=== PATIENT | female | born 1995 | race Caucasian/White ===

== ENCOUNTER 2018-03-28 19:38 | Emergency (ER) | payer OTHER ==
[~2018-03-28] VITALS: Ht 157.5 cm; Wt 55.3 kg
[~2018-03-28 19:38] MED LIST: BACTRIM DS TAB1 EACH PO; NOHOMEMEDICATIONS; PAXIL10 MG PO; PYRIDIUM200 MG PO; ZANTAC 150MG T150 M1 PO; ZOFRAN ODT4 MG PO; birth control
[2018-03-28] MEDS ORDERED: AMITRIPTYLINE H25 M2 (19:57)
[2018-03-28 20:39] LABS: ABSOLUTE BASOPHILS 0.1 thou/uL (0.0-0.2); ABSOLUTE EOSINOPHILS 0.1 thou/uL (0.0-0.7); ABSOLUTE LYMPHOCYTES 1.9 thou/uL (0.8-5.3); ABSOLUTE MONOCYTES 0.4 thou/uL (0.0-1.2); ABSOLUTE NEUTROPHILS 4.3 thou/uL (1.6-8.1); BASOPHILS 1.1 %; EOSINOPHILS 1.6 %; HEMATOCRIT 38.1 % (37.0-47.0); HEMOGLOBIN 12.9 gm/dL (12.0-15.0); LYMPHOCYTES 28.2 %; MCH 27.2 pg (26.0-34.0); MCHC 33.9 g/dL (28.0-37.0); MCV 80.3 fL (80.0-100.0); MONOCYTES 6.2 %; MPV 7.4 fl. (7.2-11.1); NUCLEATED RBCS 0 /100WBC; PLATELET COUNT* 273 thou/uL (150-400); POLYS 62.9 %; RBC 4.75 mil/uL (4.20-5.00); RDW-CV 12.8 % (10.5-14.5); WBC 6.8 thou/uL (4.0-11.0)
[2018-03-28 20:57] LABS: CREATININE 0.7 mg/dL (0.6-1.3); POTASSIUM 3.5 mmol/L (3.5-5.1)
[2018-03-28 21:02] LABS: ALBUMIN 4.1 g/dL (3.4-5.0); TOTAL BILIRUBIN 0.6 mg/dL (<0.1-1.0); TOTAL PROTEIN 7.5 g/dL (6.4-8.2)
[2018-03-28 21:29] VITALS: BP 116/62
== END 2018-03-28 21:29 | disposition home or self-care (01) ==
LOC: M.ERS 19:38
PROVIDERS: Physician Assistant
DX: M79.652 Pain in left thigh (principal); F41.9 Anxiety disorder, unspecified; Z77.22 Contact with and (suspected) exposure to environmental tobacco smoke (acute) (chronic)

== ENCOUNTER 2018-07-27 21:35 | Emergency (ER) | payer OTHER ==
[~2018-07-27] VITALS: Ht 157.5 cm; Wt 59.0 kg
[~2018-07-27 21:35] MED LIST changes: +AMITRIPTYLINE H25 M2
[2018-07-27] MEDS ORDERED: CELEXA20 MG PO (21:47)
[2018-07-27] MEDS ORDERED: VISTARIL 25 MG25 M1 PO (22:13)
[2018-07-27 22:26] VITALS: BP 132/71
== END 2018-07-27 22:26 | disposition home or self-care (01) ==
LOC: M.ERS 21:35
DX: F41.9 Anxiety disorder, unspecified (principal); Z77.22 Contact with and (suspected) exposure to environmental tobacco smoke (acute) (chronic)

== ENCOUNTER 2019-10-21 23:17 | Observation (INO) | payer OTHER ==
[~2019-10-21] VITALS: Ht 157.5 cm; Wt 68.0 kg
[~2019-10-21 23:17] MED LIST changes: +CELEXA20 MG PO; +VISTARIL 25 MG25 M1 PO
[2019-10-21] MEDS ORDERED: [UNRECOGNIZED DRUG - OTHER] (23:28)
[2019-10-21 23:29] VITALS: BP 130/84
[2019-10-21 23:52] LABS: URINE BILIRUBIN NEGATIVE (Negative); URINE BLOOD TRACE (Negative); URINE CLARITY CLEAR; URINE COLOR YELLOW; URINE GLUCOSE-RANDOM NEGATIVE (Negative); URINE KETONES NEGATIVE (Negative); URINE LEUKOCYTES-REFLEX NEGATIVE (Negative); URINE NITRITE-REFLEX NEGATIVE (Negative); URINE PROTEIN NEGATIVE (Negative); URINE UROBILINOGEN 0.2 E.U./dl (0.2-1.0)
[2019-10-22 00:06] LABS: ABSOLUTE LYMPHOCYTES 1.5 thou/uL (0.8-5.3); ABSOLUTE MONOCYTES 0.7 thou/uL (0.0-1.2); ABSOLUTE NEUTROPHILS 12.1 thou/uL (1.6-8.1); BASOPHILS 0.1 %; EOSINOPHILS 0.3 %; HEMATOCRIT 38.8 % (37.0-47.0); HEMOGLOBIN 13.4 gm/dL (12.0-15.0); LYMPHOCYTES 10.6 %; MCHC 34.5 g/dL (28.0-37.0); MCV 81.2 fL (80.0-100.0); MONOCYTES 4.9 %; MPV 7.6 fl. (7.2-11.1); NUCLEATED RBCS 0 /100WBC; PLATELET COUNT* 245 thou/uL (150-400); POLYS 84.1 %; RBC 4.79 mil/uL (4.20-5.00); RDW-CV 13.1 % (10.5-14.5); WBC 14.4 thou/uL (4.0-11.0)
[2019-10-22 00:19] LABS: CALCIUM 8.6 mg/dL (8.5-10.1); CREATININE 0.9 mg/dL (0.6-1.3); POTASSIUM 3.5 mmol/L (3.5-5.1)
[2019-10-22 00:23] LABS: ALBUMIN 3.8 g/dL (3.4-5.0); TOTAL BILIRUBIN 0.9 mg/dL (<0.1-1.0); TOTAL PROTEIN 7.2 g/dL (6.4-8.2)
[2019-10-22 05:15] VITALS: BP 109/62
--- NOTE | 2019-10-22 08:03 | OP ---
[address] [address] OPERATIVE REPORT Name: GI GALLO Room: [address] M.RAmparo#: [id number] Admission: 10/22/19 Attend Phys: Rosemary Fernandes DO Discharge: Date of : [birth year] Report #: [id number] THIS REPORT FOR: //name// cc: Summer JOYCE A DO THIS REPORT FOR: //name// CC: Summer Vazquez DO DICTATED BY: Nieves Baker DO DATE OF SERVICE: 10/22/2019 PREOPERATIVE DIAGNOSIS: Acute appendicitis with localized peritonitis and leukocytosis. POSTOPERATIVE DIAGNOSIS: Acute appendicitis with localized peritonitis and leukocytosis. PRIMARY SURGEON: Rosemary Fernandes DO. SEAFOOD FISHERMAN: Nieves Baker DO, PGY3. PROCEDURE PERFORMED: Laparoscopic appendectomy. ANESTHESIA: General and local. EBL: 5. FINDINGS: Inflammation of the appendix. Uterus was mildly enlarged and also appeared inflamed with some surrounding clear yellow fluid. COMPLICATIONS: None. INDICATION FOR PROCEDURE: The patient is a pleasant 24-year-old female that presented to the Emergency Department with complaint of worsening lower abdominal pain as well as nausea and vomiting. Workup in the Emergency Department revealed a leukocytosis and also included a CT scan, which was positive for mild acute appendicitis. It was recommended that she undergo laparoscopic appendectomy. The procedure, risks, benefits, and possible complications to include bleeding, infection, injury to surrounding structures, hernia at an incision site, need for open procedure, need for additional surgery, risk of anesthesia, and other risks of surgery were discussed with the patient in great detail. She voiced complete understanding and wished to [address] [address] OPERATIVE REPORT Name: EUNALFREDKRISTIEGI E Room: [address] Homar Martell#: [id number] Admission: 10/22/19 Attend Phys: oRsemary Fernandes DO Discharge: Date of : [birth year] Report #: [id number] proceed with surgery. DESCRIPTION OF THE PROCEDURE: Informed consent was obtained, the patient was taken to the operating room and placed supine on the operating room table. General endotracheal anesthesia was induced without difficulty. SCDs were placed on bilateral lower extremities. Preoperative antibiotics were given. Abdomen was prepped and draped in the standard sterile fashion. A timeout was performed to ensure correct patient and procedure. We began by making a small infraumbilical incision using a #11 blade scalpel. Incision was carried down through the subcutaneous tissue using electrocautery. S retractors were then used to dissect further down to the level of fascia. Fascia was grasped between 2 Kochers and elevated. Fascia was incised using electrocautery. Peritoneum was entered bluntly using a hemostat. A finger sweep was performed to ensure there were no per- incisional adhesions, 0 Vicryl stay sutures were placed on either side of our fascial opening 12 mm Yuriy trocar was inserted through our fascial opening. Abdomen was insufflated without difficulty. Laparoscopic camera was inserted and a sweep of the anterior abdominal contents was performed. The appendix was not readily visualized on our initial sweep. The pelvic organs including the uterus appeared slightly enlarged and mildly inflamed with some surrounding clear yellow fluid. The patient was then placed in the Trendelenburg position with the left side down. A suprapubic and a left lower quadrant 5 mm trocar were inserted under direct visualization. There was a large amount of omentum covering the lower abdominal organs. This was retracted superiorly and the appendix was identified in a retrocecal position. Appendix was grasped and elevated, it did appear to be acutely inflamed. A [place] dissector was used to dissect a window through the mesoappendix at the base of the appendix. Once this was done, 45 mm purple load on the Endo-VICENTA stapler was used to come across the base of our appendix. An additional 45 mm purple load on the Endo-VICENTA stapler was used to come across our mesoappendix. Staple lines were inspected. The appendix was then placed within an EndoCatch bag. The staple lines were reinspected. There did appear to be a small amount of bleeding coming from our staple line along the mesoappendix. This was controlled using electrocautery. Once hemostasis was achieved, the insufflation tubing was removed and the abdomen was allowed to desufflate slightly as we monitored our staple lines. There did not appear to be any further bleeding. Abdomen was reinsufflated. An additional sweep of the abdominal contents was performed. No additional abnormalities were identified. The suprapubic and left lower quadrant 5 mm trocars were removed under direct visualization. Abdomen was desufflated without difficulty. Camera was removed. The 12 mm Yuriy trocar was removed as well as the appendix within the EndoCatch bag. The fascia at the infraumbilical incision was grasped between 2 Kochers. Previously placed stay sutures were removed. The fascia was then closed using 0 Vicryl suture in a xvzxui-ow-soxpt fashion. Skin was closed using 4-0 Monocryl suture in a running subcuticular fashion. The 5 mm trocar sites were closed using 4-0 Monocryl suture in a simple interrupted and inverted fashion. Approximately 30 mL of 0.5% Marcaine were used for local anesthesia [address] [address] OPERATIVE REPORT Name: GI GALLO Room: [address] M.R.#: [id number] Admission: 10/22/19 Attend Phys: Rosemary Fernandes DO Discharge: Date of : [birth year] Report #: [id number] between the 3 incisions. Abdomen was cleansed and dried. Dermabond was applied to each incision. The patient tolerated the procedure very well. She was allowed to awaken in the operating room and was transferred to the PACU in stable condition with plans to discharge home later today. <ELECTRONICALLY SIGNED> By: Rosemary Fernandes DO 10/22/19 0803 [id number] Fernandes DO /afshin
[2019-10-22 08:18] VITALS: BP 117/69
[2019-10-22 12:51] VITALS: BP 104/47
[2019-10-22 14:08] VITALS: BP 104/47
[2019-10-22] MEDS ORDERED: OXYCODONE HCL 55 MG PO (14:21)
[2019-10-22 16:42] VITALS: BP 108/49
--- NOTE | 2019-10-26 13:08 | PATH ---
[address] [address] PATHOLOGY RPT PROCEDURE Name: OSIRIS YUN Room: [address] Jayshree#: [id number] Admission: 10/22/19 Date of : [birth year] Discharge: 10/22/19 Report #: [id number] Path Case #: [id number] [facility] Accession Number: [id number] . 01 Material submitted: . appendix - APPENDIX . 01 Clinical history: . Pre-op diagnosis: Right lower quadrant pain Post-op diagnosis: Acute appendicitis . 02 Diagnosis: Appendix: - Acute appendicitis, periappendicitis and serositis. (KATH/db; 10/25/2019) LBQ 10/25/2019 1633 Local . 02 Electronically signed: . Gautam Agosto MD, Pathologist NPI- [id number] . 01 Gross description: . The specimen is received in formalin, labeled "Osiris Yun, appendix". Received is a vermiform appendix measuring 7.6 cm in length by up to 0.8 cm in diameter with a moderate amount of attached mesoappendix. The serosal surface is pink-pastrana in appearance with moderate vasculature. The surgical margin is closed with a line of keegan. The keegan are removed and the new margin is inked black. Sectioning reveals a patent to dilated lumen filled with fecal material admixed with a slight amount of blood-tinged purulent exudate. The specimen is submitted representatively in cassettes A1 and A2, with the proximal margin and bisected tip submitted in cassette A1. (CAA; 10/22/2019) QAC/QAC 10/22/2019 1733 Local . 02 Pathologist provided ICD-10: K35.80 . 02 CPT . 808375 Specimen Comment: A courtesy copy of this report has been sent to [phone], [phone] Specimen Comment: [phone] Specimen Comment: Report sent to / DR EDWARDS Performed at: [address] [facility] [id number] MD Taqueria Leach MD Phone: [phone] [place] [address] PATHOLOGY RPT PROCEDURE Name: MALENA YUNINE Annika Room: [address] Homar Martell#: [id number] Admission: 10/22/19 Date of : [birth year] Discharge: 10/22/19 Report #: [id number] Path Case #: [id number] Performed at: [address] [place] [id number] MD Gautam Agosto MD Phone: [phone]
== END 2019-10-22 18:38 | disposition home or self-care (01) ==
LOC: M.ERS 23:17 → M.SUR 23:17 → M.TBA-ER 10-22 06:37 → M.ORTHSURG 10-22 08:11
PROVIDERS: Emergency Medicine Emergency Medical Services; ADMIT Surgery; ATTEND Surgery
DX: K35.30 Acute appendicitis with localized peritonitis, without perforation or gangrene (principal); D72.829 Elevated white blood cell count, unspecified; R11.2 Nausea with vomiting, unspecified; F41.9 Anxiety disorder, unspecified; R19.7 Diarrhea, unspecified; K59.00 Constipation, unspecified

== ENCOUNTER 2019-11-08 19:14 | Inpatient (IN) | payer OTHER ==
[~2019-11-08] VITALS: Ht 157.5 cm; Wt 72.6 kg
[~2019-11-08 19:14] MED LIST changes: +OXYCODONE HCL 55 MG PO; +[UNRECOGNIZED DRUG - OTHER]
[2019-11-08 19:30] VITALS: BP 127/78
[2019-11-08] MEDS ORDERED: AMITRIPTYLINE H25 M3 PO (19:37)
[2019-11-08] MEDS ORDERED: HYDROXYZINE HCL50 MG PO (19:39)
[2019-11-08 19:57] LABS: URINE BILIRUBIN NEGATIVE (Negative); URINE BLOOD TRACE (Negative); URINE CLARITY CLEAR; URINE COLOR YELLOW; URINE GLUCOSE-RANDOM NEGATIVE (Negative); URINE KETONES NEGATIVE (Negative); URINE LEUKOCYTES-REFLEX NEGATIVE (Negative); URINE NITRITE-REFLEX NEGATIVE (Negative); URINE PROTEIN NEGATIVE (Negative); URINE UROBILINOGEN 0.2 E.U./dl (0.2-1.0)
[2019-11-08 20:10] LABS: HEMATOCRIT 41.4 % (37.0-47.0); HEMOGLOBIN 14.3 gm/dL (12.0-15.0); MCH 28.2 pg (26.0-34.0); MCHC 34.6 g/dL (28.0-37.0); MCV 81.5 fL (80.0-100.0); MPV 7.9 fl. (7.2-11.1); NUCLEATED RBCS 0 /100WBC; PLATELET COUNT* 258 thou/uL (150-400); RBC 5.08 mil/uL (4.20-5.00); RDW-CV 13.2 % (10.5-14.5); WBC 12.1 thou/uL (4.0-11.0)
[2019-11-08 20:21] LABS: CALCIUM 9.2 mg/dL (8.5-10.1); CREATININE 0.9 mg/dL (0.6-1.3); POTASSIUM 3.5 mmol/L (3.5-5.1)
[2019-11-08 20:26] LABS: ALBUMIN 4.8 g/dL (3.4-5.0); TOTAL BILIRUBIN 0.7 mg/dL (<0.1-1.0)
[2019-11-08 20:39] LABS: ABSOLUTE LYMPHOCYTES 1.3 thou/uL (0.8-5.3); ABSOLUTE MONOCYTES 0.6 thou/uL (0.0-1.2); ABSOLUTE NEUTROPHILS 10.2 thou/uL (1.6-8.1)
[2019-11-08 20:40] LABS: PLATELET ESTIMATE ADEQUATE
[2019-11-08 20:45] LABS: ALCOHOL < 10 mg/dL (<10); SALICYLATE 4.1 mg/dL (2.8-20.0)
[2019-11-08 20:51] LABS: ACETAMINOPHEN < 2 ug/mL (10-30)
[2019-11-08 21:04] LABS: AMP/METHAMP Negative (Negative); BARBITURATES Negative (Negative); BENZODIAZEPINES Negative (Negative); COCAINE Negative (Negative); METHADONE Negative (Negative); OPIATES Negative (Negative); PCP Negative (Negative); THC Negative (Negative)
[2019-11-09 00:30] VITALS: BP 111/52
[2019-11-09 08:29] VITALS: BP 103/60
[2019-11-09 09:14] LABS: ABSOLUTE BASOPHILS 0.1 thou/uL (0.0-0.2); ABSOLUTE LYMPHOCYTES 0.9 thou/uL (0.8-5.3); ABSOLUTE MONOCYTES 0.6 thou/uL (0.0-1.2); ABSOLUTE NEUTROPHILS 10.5 thou/uL (1.6-8.1); BASOPHILS 0.5 %; EOSINOPHILS 0.2 %; HEMATOCRIT 38.1 % (37.0-47.0); LYMPHOCYTES 7.5 %; MCH 27.9 pg (26.0-34.0); MCHC 34.3 g/dL (28.0-37.0); MCV 81.5 fL (80.0-100.0); MONOCYTES 4.8 %; MPV 7.3 fl. (7.2-11.1); NUCLEATED RBCS 0 /100WBC; PLATELET COUNT* 231 thou/uL (150-400); RBC 4.67 mil/uL (4.20-5.00); RDW-CV 13.3 % (10.5-14.5); WBC 12.1 thou/uL (4.0-11.0)
[2019-11-09 10:04] LABS: ALBUMIN 3.5 g/dL (3.4-5.0); CALCIUM 7.9 mg/dL (8.5-10.1); CREATININE 0.8 mg/dL (0.6-1.3)
[2019-11-09] MEDS ORDERED: TYLENOL325 MG PO (10:36)
[2019-11-09] MEDS ORDERED: PHENERGAN 25 MG25 M1 PO (10:36)
[2019-11-09] MEDS ORDERED: BANOPHEN25 MG PO (10:36)
[2019-11-09 16:25] VITALS: BP 103/60
[2019-11-09 16:30] VITALS: BP 111/55
[2019-11-09 20:00] VITALS: BP 123/65
[2019-11-10 07:10] VITALS: BP 110/61
[2019-11-10 16:28] VITALS: BP 98/49
[2019-11-10 21:15] VITALS: BP 112/67
[2019-11-11 08:20] VITALS: BP 105/71
[2019-11-11] MEDS ORDERED: AUGMENTIN 875-1 EACH PO (11:27)
[2019-11-11] MEDS ORDERED: SM SORE THROAT PO (11:27)
[2019-11-11] MEDS ORDERED: CEPACOL SORE T1 EAC8 PO (11:27)
[2019-11-11 13:19] VITALS: BP 105/71
[2019-11-11 15:15] VITALS: BP 117/80
== END 2019-11-11 19:05 | DRG 392 ==
LOC: M.ERS 19:14 → M.TBA-ER 11-09 00:43 → M.ORTHSURG 11-09 16:05
PROVIDERS: Emergency Medicine; Internal Medicine; ADMIT Internal Medicine; ATTEND Internal Medicine
DX: A08.4 Viral intestinal infection, unspecified (principal); R45.851 Suicidal ideations; F41.9 Anxiety disorder, unspecified; Z77.22 Contact with and (suspected) exposure to environmental tobacco smoke (acute) (chronic); F32.9 Major depressive disorder, single episode, unspecified; F43.10 Post-traumatic stress disorder, unspecified; Y99.8 Other external cause status; T14.8XXA Other injury of unspecified body region, initial encounter; Z90.49 Acquired absence of other specified parts of digestive tract; Z88.8 Allergy status to other drugs, medicaments and biological substances; Z91.040 Latex allergy status; X58.XXXA Exposure to other specified factors, initial encounter; Y93.89 Activity, other specified; Y92.89 Other specified places as the place of occurrence of the external cause; Z20.828 Contact with and (suspected) exposure to other viral communicable diseases; Z79.899 Other long term (current) drug therapy

== ENCOUNTER 2021-01-15 12:15 | Emergency (ER) | payer OTHER ==
[~2021-01-15] VITALS: Ht 157.5 cm; Wt 74.8 kg
[~2021-01-15 12:15] MED LIST changes: +AMITRIPTYLINE H25 M3 PO; +AUGMENTIN 875-1 EACH PO; +BANOPHEN25 MG PO; +CEPACOL SORE T1 EAC8 PO; +HYDROXYZINE HCL50 MG PO; +PHENERGAN 25 MG25 M1 PO; +SM SORE THROAT PO; +TYLENOL325 MG PO
[2021-01-15] MEDS ORDERED: SERTRALINE HCL100 MG PO (12:41)
[2021-01-15] MEDS ORDERED: IMITREX 50 MG T50 MG PO (12:41)
[2021-01-15] MEDS ORDERED: PROPRANOLOL 20M20 M1 PO (12:41)
[2021-01-15] MEDS ORDERED: LITHIUM CARBON450 MG PO (12:42)
[2021-01-15] MEDS ORDERED: BUSPIRONE HCL10 MG PO (12:42)
[2021-01-15] MEDS ORDERED: ONDANSETRON ODT4 MG PO (12:43)
[2021-01-15 13:03] LABS: ABSOLUTE BASOPHILS 0.1 thou/uL (0.0-0.2); ABSOLUTE EOSINOPHILS 0.2 thou/uL (0.0-0.7); ABSOLUTE LYMPHOCYTES 2.2 thou/uL (0.8-5.3); ABSOLUTE MONOCYTES 0.6 thou/uL (0.0-1.2); ABSOLUTE NEUTROPHILS 5.6 thou/uL (1.6-8.1); BASOPHILS 0.6 %; HEMATOCRIT 42.4 % (37.0-47.0); HEMOGLOBIN 14.4 gm/dL (12.0-15.0); LYMPHOCYTES 25.8 %; MCH 27.4 pg (26.0-34.0); MCHC 33.9 g/dL (28.0-37.0); MCV 80.8 fL (80.0-100.0); NUCLEATED RBCS 0 /100WBC; PLATELET COUNT* 297 thou/uL (150-400); POLYS 64.6 %; RBC 5.25 mil/uL (4.20-5.00); RDW-CV 13.5 % (10.5-14.5); WBC 8.7 thou/uL (4.0-11.0)
[2021-01-15 13:11] LABS: CALCIUM 9.2 mg/dL (8.5-10.1); CREATININE 0.8 mg/dL (0.6-1.3); POTASSIUM 3.5 mmol/L (3.5-5.1)
[2021-01-15 13:15] LABS: ALBUMIN 4.8 g/dL (3.4-5.0); TOTAL BILIRUBIN 0.5 mg/dL (<0.1-1.0); TOTAL PROTEIN 8.9 g/dL (6.4-8.2)
--- NOTE | 2021-01-15 13:46 | EKG ---
[place] [address] ELECTROCARDIOGRAM REPORT Name: GI GALLO Room: [facility]#: [id number] Admission: Attend Phys: Discharge: Date of : [birth year] Date of Service: 01/15/21 1308 Report #: [id number] THIS REPORT FOR: //name// [facility] ED Test Date: 2021-01-15 Test Time: 13:08:36 Pat Name: GI GALLO Department: Room: Gender: F Grounds Crew Supervisor: cd : 1995 Requested By: Marlene Ferguson Order Number: [id number] MD: Justino Pérez Measurements Intervals [place] Rate: 72 P: 30 [place]: 148 QRS: 44 QRSD: 100 T: 18 QT: 413 QTc: 453 Interpretive Statements Sinus rhythm Compared to ECG 08/11/2013 12:34:24 Sinus arrhythmia no longer present Electronically Signed On 01-15-2021 13:46:10 CDT by Justino Pérez [email or web address] <ELECTRONICALLY SIGNED> By: Justino Pérez MD, [facility] 01/15/21 1346 130 07 Justion Pérez MD, FAC /EPI
[2021-01-15 13:57] LABS: URINE BILIRUBIN NEGATIVE (Negative); URINE BLOOD NEGATIVE (Negative); URINE CLARITY CLEAR; URINE COLOR YELLOW; URINE GLUCOSE-RANDOM NEGATIVE (Negative); URINE KETONES NEGATIVE (Negative); URINE LEUKOCYTES-REFLEX NEGATIVE (Negative); URINE NITRITE-REFLEX NEGATIVE (Negative); URINE PROTEIN NEGATIVE (Negative); URINE SPECIFIC GRAVITY <= 1.005 (1.005-1.030); URINE UROBILINOGEN 0.2 E.U./dl (0.2-1.0)
[2021-01-15] MEDS ORDERED: HYDROXYZINE HCL25 M2 PO (15:09)
[2021-01-15] MEDS ORDERED: MECLIZINE HCL25 MG PO (15:09)
[2021-01-15 15:27] VITALS: BP 112/70
== END 2021-01-15 15:31 | disposition home or self-care (01) ==
LOC: M.ERS 12:15
PROVIDERS: Nurse Practitioner Family
DX: R07.89 Other chest pain (principal); Z20.822 Contact with and (suspected) exposure to COVID-19; B34.9 Viral infection, unspecified; F41.9 Anxiety disorder, unspecified; Z98.890 Other specified postprocedural states; Z79.891 Long term (current) use of opiate analgesic; Z79.1 Long term (current) use of non-steroidal anti-inflammatories (NSAID); Z79.899 Other long term (current) drug therapy; Z91.040 Latex allergy status; Z91.048 Other nonmedicinal substance allergy status; Z77.22 Contact with and (suspected) exposure to environmental tobacco smoke (acute) (chronic)